=== PATIENT | female | born 2000 | race Caucasian/White ===

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

== ENCOUNTER → 2020-11-05 | Outpatient (CLI) | payer BC, SELFPAY ==
[2020-11-05 10:43] LABS: D-Dimer Quantitative (DVT/PE) 0.28 FEU/ug/m (0.27-0.49)
== END | disposition home or self-care (01) ==
PROVIDERS: Referring Provider Family Medicine; Visit Provider Family Medicine
DX: R07.9 Chest pain, unspecified (principal); R00.2 Palpitations
CPT/HCPCS: 85379

== ENCOUNTER 2022-01-27 13:11 | Outpatient (CLI) | payer OTHER, SELFPAY ==
[2022-01-28 21:07] LABS: Chlamydia By Nucleic Acid AMP Negative (Negative)
[2022-01-29 12:55] LABS: Gonococcus By Nucleic Acid AMP Negative (Negative)
[2022-02-01 17:57] LABS: HPV Reflexed? NOT INDICATED
== END 2022-01-27 23:59 | disposition home or self-care (01) ==
LOC: LABSPEC 13:12
PROVIDERS: Visit Provider Nurse Practitioner Women's Health
DX: Z12.4 Encounter for screening for malignant neoplasm of cervix (principal); Z11.3 Encounter for screening for infections with a predominantly sexual mode of transmission; N76.0 Acute vaginitis
CPT/HCPCS: 87070; 87205; 87491; 87591; 88175; G0145

== ENCOUNTER → 2023-01-31 | Outpatient (CLI) | payer OTHER, SELFPAY ==
[2023-02-01 22:06] LABS: Chlamydia By Nucleic Acid AMP Negative (Negative)
[2023-02-02 12:55] LABS: Gonococcus By Nucleic Acid AMP Negative (Negative)
== END | disposition home or self-care (01) ==
LOC: LABSPEC 12:04
PROVIDERS: Referring Provider Nurse Practitioner Women's Health; Visit Provider Nurse Practitioner Women's Health
DX: Z11.3 Encounter for screening for infections with a predominantly sexual mode of transmission (principal)
CPT/HCPCS: 87491; 87591